=== PATIENT | male | born 1995 | race Hispanic/Latino ===

== ENCOUNTER 2018-09-24 23:21 | Emergency (ER) | payer BC, MEDICAID | END 2018-09-24 23:38 | disposition home or self-care (01) | LOC: EDH 23:21 | DX: H65.191 Other acute nonsuppurative otitis media, right ear (principal); J02.9 Acute pharyngitis, unspecified; Z88.0 Allergy status to penicillin ==

== ENCOUNTER 2019-04-06 22:57 | Emergency (ER) | payer BC ==
[2019-04-07] MEDS ORDERED: IBUPROFEN 800 MG TAB ONE (00:15)
== END 2019-04-07 01:07 | disposition home or self-care (01) ==
LOC: EDH 22:57
DX: S62.646A Nondisplaced fracture of proximal phalanx of right little finger, initial encounter for closed fracture (principal); S62.306A Unspecified fracture of fifth metacarpal bone, right hand, initial encounter for closed fracture; Z88.0 Allergy status to penicillin; W01.198A Fall on same level from slipping, tripping and stumbling with subsequent striking against other object, initial encounter; Y93.89 Activity, other specified; Y92.89 Other specified places as the place of occurrence of the external cause; Y99.8 Other external cause status
CPT/HCPCS: 29125; 73130